=== PATIENT | male | born 1950 | race Caucasian/White ===

== ENCOUNTER → 2016-11-16 | Outpatient (CLI) | payer OTHER | LOC: CIMAGING 07:01 | PROVIDERS: ATTEND Physician Assistant | DX: Z13.6 Encounter for screening for cardiovascular disorders (principal); Z82.49 Family history of ischemic heart disease and other diseases of the circulatory system ==

== ENCOUNTER → 2017-04-27 | Outpatient (CLI) | payer OTHER | LOC: FIMAGING 10:11 | PROVIDERS: ATTEND Physician Assistant | DX: M23.241 Derangement of anterior horn of lateral meniscus due to old tear or injury, right knee (principal); M22.41 Chondromalacia patellae, right knee; M25.461 Effusion, right knee ==

== ENCOUNTER 2018-02-07 09:53 | Observation (INO) | payer OTHER ==
--- NOTE | 2018-02-07 07:10 | PDHPUP ---
History & Physical Update H&P update statement: This history and physical update is based on an assessment of the patient which was completed after admission or registration (within 24 hours), but prior to the surgery/procedure. H&P update: H&P reviewed & patient examined, no change in patient's condition since H&P completed
[~2018-02-07 09:53] MED LIST: MIDAZOLAM 2 MG/2 ML VIAL IVP ONE; MIDAZOLAM 2 MG/2 ML VIAL ONE; PROPOFOL/EMULSION 500 MG/50 ML BOTTLE IV ONE; ROPIVACAINE 0.2% 80 MG, EPINEPHrine 0.2 MG, KETOROLAC TROMETHAMINE 30 MG in SYRINGE 0 ML IU ONE; TRANEXAMIC ACID 3,000 MG in NS (SYRINGE) 50 ML IRR ONE; TRANEXAMIC ACID 3,000 MG/50 ML BAG IRR ONE; fentaNYL 100 MCG/2 ML INJ ONE
[2018-02-07] MEDS ORDERED: FAMOTIDINE 20 MG TAB PO ONE (10:02)
[2018-02-07] MEDS ORDERED: ceFAZolin 2 GM/DEXTROSE 100 ML IV ONE (10:02)
[2018-02-07] MEDS ORDERED: ACETAMINOPHEN 325 MG TAB PO ONE (10:02)
[2018-02-07] MEDS ORDERED: DEXAMETHASONE 4 MG/ML VIAL IVP ONE (10:02)
[2018-02-07] MEDS ORDERED: LR 1,000 ML IV ONE (10:03)
[2018-02-07] MEDS ORDERED: LIDOCAINE 1% 2 ML INJ ID PRN (10:03)
[2018-02-07] MEDS ORDERED: MIDAZOLAM 2 MG/2 ML VIAL ONE (12:06)
[2018-02-07] MEDS ORDERED: LACTULOSE 20 GM/30 ML UDCUP PO PRN (12:45)
[2018-02-07] MEDS ORDERED: diphenhydrAMINE 25 MG CAP PO PRN (12:45)
[2018-02-07] MEDS ORDERED: MAGNESIUM HYDROXIDE 30 ML UDCUP PO PRN (12:45)
[2018-02-07] MEDS ORDERED: BISACODYL 10 MG SUPP PR PRN (12:45)
[2018-02-07] MEDS ORDERED: METOCLOPRAMIDE 10 MG/2 ML VIAL IVP PRN (12:45)
[2018-02-07] MEDS ORDERED: PROMETHAZINE HCL 25 MG/ML INJ IVP PRN (12:45)
[2018-02-07] MEDS ORDERED: TEMAZEPAM 15 MG CAP PO PRN (12:45)
[2018-02-07] MEDS ORDERED: PROMETHAZINE HCL 25 MG SUPPR PR PRN (12:45)
[2018-02-07] MEDS ORDERED: CYCLOBENZAPRINE 10 MG TAB PO PRN (12:45)
[2018-02-07] MEDS ORDERED: ONDANSETRON DISINTEGRATING 4 MG TAB PO PRN (12:45)
[2018-02-07] MEDS ORDERED: POLYETHYLENE GLYCOL 3350 17 GM PKT PO PRN (12:45)
[2018-02-07] MEDS ORDERED: ONDANSETRON 4 MG/2 ML VIAL IVP PRN ×2 (12:45→13:10)
[2018-02-07] MEDS ORDERED: DIPHENOXYLATE/ATROPINE LOMOTIL 1 TAB PO PRN (12:45)
[2018-02-07] MEDS ORDERED: LR 1,000 ML IV SCH (13:00)
[2018-02-07] MEDS ORDERED: NALOXONE HCL 0.4 MG/ML INJ IVP PRN (13:10)
[2018-02-07] MEDS ORDERED: HYDROmorphONE/DILAUDID 2 MG/ML INJ IVP PRN (13:10)
[2018-02-07] MEDS ORDERED: LABETALOL HCL 5 MG/ML 20 ML MDV IVP PRN (13:10)
[2018-02-07] MEDS ORDERED: MEPERIDINE 25 MG/0.5 ML AMP IVP PRN (13:10)
[2018-02-07] MEDS ORDERED: fentaNYL 100 MCG/2 ML INJ IVP PRN (13:10)
[2018-02-07] MEDS ORDERED: DIAZEPAM 5 MG/ML 1 ML SYR IVP PRN (13:10)
[2018-02-07] MEDS ORDERED: ALBUTEROL 3 ML DEYVIAL IH PRN (13:10)
--- NOTE | 2018-02-07 13:10 | PDANEPAE ---
ANE Past Medical History - Cardiovascular History Hx Hypertension: Yes Hx Arrhythmias: No Hx Chest Pain: No Hx Coronary Artery / Peripheral Vascular Disease: No Hx CHF / Valvular Disease: No Hx Palpitations: No - Pulmonary History Hx COPD: No Hx Asthma/Reactive Airway Disease: No Hx Recent Upper Respiratory Infection: No Hx Oxygen in Use at Home: No Hx Sleep Apnea: No Sleep Apnea Screening Result - Last Documented: Positive - Neurologic History Hx Cerebrovascular Accident: No Hx Seizures: No Hx Dementia: No - Endocrine History Hx Diabetes: No - Renal History Hx Renal Disorders: Yes Renal History Comment: NOCTURIA - Liver History Hx Hepatic Disorders: No - Neurological & Psychiatric Hx Hx Neurological and Psychiatric Disorders: No - Cancer History Hx Cancer: No - Congenital Disorder History Hx Congenital Disorders: No - GI History Hx Gastrointestinal Disorders: No - Other Health History Other Health History: OSTEOARTHRITIS - Chronic Pain History Chronic Pain: Yes (RT KNEE) - Surgical History Prior Surgeries: LT KNEE SCOPE 1999 ANE Review of Systems Review of Systems: - Exercise capacity METS (RN): 4 METS ANE Patient History - Allergies Allergies/Adverse Reactions: No Known Allergies Allergy (Verified 01/11/18 10:31) - Home Medications Home Medications: Cholecalciferol Vit D3 [Vitamin D3 (*)] 1,000 units PO AD 01/11/18 [Last Taken 2 Weeks Ago ~01/24/18] Losartan Potassium [Cozaar 50 mg (*)] 50 mg PO HS 01/11/18 [Last Taken 1 Day Ago ~02/06/18] Psyllium Husk (with Sugar) [Metamucil Packet] 0.5 each PO BID 01/11/18 [Last Taken 1 Day Ago ~02/06/18] - NPO status NPO Since - Liquids (Date): 02/06/18 NPO Since - Liquids (Time): 08:30 NPO Since - Solids (Date): 02/06/18 NPO Since - Solids (Time): 19:00 - Smoking Hx Smoking Status: Never smoked ANE Labs/Vital Signs - Vital Signs Blood Pressure: 145/95 Heart Rate: 66 Respiratory Rate: 18 O2 Sat (%): 95 Height: 173.99 cm Weight: 72.575 kg ANE Physical Exam - Airway Neck exam: FROM Mallampati Score: Class 2 Mouth exam: normal dental/mouth exam - Pulmonary Pulmonary: no respiratory distress, clear to auscultation - Cardiovascular Cardiovascular: regular rate and rhythym, no murmur, rub, or gallop ANE Anesthesia Plan Anesthesia Plan: spinal Regional Anesthesia: single shot NB, adductor canal FNB
--- NOTE | 2018-02-07 14:01 | POSTOPPROG ---
Post Op Note Date of Operation: 02/07/18 Surgeon: Joselin Johnson Pediatric Nurse Practitioner: Chani Johnson PAc Anesthesiologist: Marcos Anesthesia: Spinal Pre-op Diagnosis: R knee DJD Post-op Diagnosis: same Indication: pain Procedure: R TKA with robot Findings: DJD knee Inf/Abcess present in the surg proc area at time of surgery?: No EBL: 50-100
--- NOTE | 2018-02-07 14:08 | POSTANESTH ---
Post Anesthetic Evaluation Cardiovascular Status: Normal, Stable Respiratory Status: Normal, Stable Level of Consciousness/Mental Status: Can Participate in Eval, Alert and Oriented Pain Control: Adequate, Prn Tx Ordered Nausea/Vomiting Control: Adequate, Prn Tx Ordered Complications Possibly Related to Anesthesia: None Noted
[2018-02-07] MEDS: ACETAMINOPHEN 325 MG TAB PO SCH ×2 (18:30→23:07)
[2018-02-07] MEDS: oxyCODONE IR 5 MG TAB PO PRN ×2 (20:55→23:07)
[2018-02-07] MEDS ORDERED: LOSARTAN POTASSIUM 50 MG TAB PO SCH (21:00)
[2018-02-07] MEDS: ceFAZolin 2 GM/DEXTROSE 100 ML IV SCH (21:22)
[2018-02-07] MEDS: ASPIRIN 81 MG CHEWABLE TAB PO SCH (21:23)
[2018-02-07] MEDS: SENNOSIDES/DOCUSATE SODIUM TAB PO SCH (21:23)
[2018-02-07] MEDS: FAMOTIDINE 20 MG TAB PO SCH (21:23)
[2018-02-08] MEDS: ceFAZolin 2 GM/DEXTROSE 100 ML IV SCH (04:56)
[2018-02-08] MEDS: ACETAMINOPHEN 325 MG TAB PO SCH (05:00)
[2018-02-08] MEDS: oxyCODONE IR 5 MG TAB PO PRN ×2 (05:49→08:54)
[2018-02-08 06:39] VITALS: BP 146/86
[2018-02-08] MEDS: SENNOSIDES/DOCUSATE SODIUM TAB PO SCH (08:25)
[2018-02-08] MEDS: ASPIRIN 81 MG CHEWABLE TAB PO SCH (08:26)
[2018-02-08] MEDS: FAMOTIDINE 20 MG TAB PO SCH (08:27)
--- NOTE | 2018-02-08 08:27 | SOAPPROG ---
SOAP Progress Note Assessment/Plan: Assessment: Patient is doing well POD 1 s/p R TKA Pain management: pain is well controlled on oral pain meds. VTE ppx: recommend aspirin 81 mg BID for 4 weeks, cont PAUL and SCDs D/c planning: d/c to home today pending release from PT Plan: 02/08/18 08:26 02/08/18 08:27 Subjective: patient is doing well ,denies SOB ,chest pain and N/V. Objective: Vital Signs Temp Pulse Resp BP Pulse Ox 36.6 C 80 13 146/86 H 95 02/08/18 06:37 02/08/18 06:37 02/08/18 06:37 02/08/18 06:37 02/08/18 06:37 Laboratory Results 02/08/18 04:20 02/07/18 02/08/18 02/09/18 05:59 05:59 05:59 Intake Total 2075 Output Total 1130 350 Balance 945 -350 RLE: incision dressing is clean and dry, NVI, +pf/df ICD10 Worksheet Patient Problems: Problems Problem Status Onset Primary localized osteoarthritis of right knee Acute
--- NOTE | 2018-02-08 08:51 | GDS ---
ADMISSION DIAGNOSIS: Right knee osteoarthritis. DISCHARGE DIAGNOSIS: Right knee osteoarthritis. PROCEDURE: Right total knee arthroplasty. VTE PROPHYLAXIS: Recommend aspirin 81 mg twice daily for 4 weeks. BRIEF DESCRIPTION OF HOSPITAL STAY: Patient was admitted for an elective joint arthroplasty. The pat ient tolerated the procedure well and has passed physical therapy. The patient was given appropriate antibiotic prophylaxis and venous thromboembolism prophylaxis. The patient's pain was well controlled on oral pain medication, patient was holding down food, and had urinated. Decision was made to disch arge the patient. The patient was given post-operative prescriptions pre-operatively. PLAN: To follow up as scheduled with Dr. Johnson's office March 01. /[id number]/MODL
--- NOTE | 2018-02-08 10:17 | GOP ---
DATE OF OPERATION: 02/07/2018 SURGEON: Chava Johnson MD FUEL SYSTEM MAINTENANCE WORKER: CLAY Shah ANESTHESIA: Spinal. PREOPERATIVE DIAGNOSIS: Right knee osteoarthritis. POSTOPERATIVE DIAGNOSIS: Right knee osteoarthritis. PROCEDURE PERFORMED: Right total knee arthroplasty with computer navigation, robotic assist. FINDINGS: ESTIMATED BLOOD LOSS: 30 mL. INDICATIONS: The patient is a 67-year-old male with severe and progressive pain and deformity of the right knee unresponsive to conservative care. The risks and benefits of surgical intervention were explained in detail. DESCRIPTION OF PROCEDURE: The patient was brought to the operative room and placed on the table in t he supine position. Spinal anesthesia was induced without difficulty. A pneumatic tourniquet was appl ied about the right proximal thigh, and the leg was prepped and draped in a sterile fashion. The leg oliveros was applied. After exsanguination by elevation the tourniquet was inflated to 250 mmHg. Incision was made anterior medial from the tibial tuberosity to a point 2 cm proximal to the superior pole of the patella. Medial parapatellar arthrotomy was carried out from the superior pole of the pa tella and posteriorly in line with the fibers of the Type II VMO. The medial collateral ligament was elevated and the infrapatellar fat pad was resected. The patella was everted and the articular surface was excised. A 35 mm patellar button was placed. Attention was turned first to the distal aspect of the femur. After exposure of the femur, 2 half pi ns were placed for fixation of the femoral array. In a similar fashion, 2 pins were placed anteromed ial on the tibia for fixation of the tibial array. External land marking and registration of the hip center were performed without difficulty. Internal femoral and tibial registration was carried out without difficulty and the femoral and tibial checkpoints were placed and verified for accuracy. Attention was turned to the femur. The foot print for the size 6 component was cut with the saw usin g the [employer] robotic system and verified for accuracy against the CT based plan. In a similar fashion, the saw was used to cut the footprint for the size 6 tibial component using the [employer] system and verifi ed for accuracy against the CT based plan. The tibial articular surface was excised without difficult y, followed by the intercondylar box cut. The knee was extended and the remnants of the medial and lateral meniscus were excised. The posterior capsule was injected with ropivacaine, epinephrine and Toradol. A size 6 tibial tray was positioned . Trial reduction was then carried out. There was excellent range of motion, alignment, and stability using the 6 x 9 mm polyethylene. All trials were then removed. The joint was thoroughly irrigated and carefully dried. The Press-fit c omponents were implanted. The permanent 9 mm polyethylene was placed without difficulty. The tourniquet was deflated and all bleeders were coagulated. The wound was thoroughly irrigated and closed using interrupted sutures of 2-0 Vicryl for the joint capsule. The subcu was closed with 3-0 V icryl and the skin with 4-0 Monocryl. Dermabond and Steri-Strips were applied followed by a compress ilia dressing. The patient was then moved from the operating room to the recovery room in good conditi on, having tolerated the procedure well. PATHOLOGY: Severe tricompartmental osteoarthritis. /[id number]/MODL
== END 2018-02-08 11:49 | disposition home or self-care (01) ==
LOC: F3N 09:53
PROVIDERS: ADMIT Orthopaedic Surgery; ATTEND Orthopaedic Surgery
PROC: 8E0YXCZ Robotic Assisted Procedure of Lower Extremity (ICD-10-PCS; principal; 2018-02-07 12:00)
PROC: 0SRC0JZ Replacement of Right Knee Joint with Synthetic Substitute, Open Approach (ICD-10-PCS; principal; 2018-02-07 12:00)
DX: M17.11 Unilateral primary osteoarthritis, right knee (principal); I10 Essential (primary) hypertension
CPT/HCPCS: 27447; 73560; 88305; 88311; 97116; 97161; C1776; G0378; G8978; G8979; G8980; J0171; J0690; J1100; J1885; J2250; J2704; J2795; J3010; J2550